=== PATIENT | female | born 1995 | race African-American/Black ===

== ENCOUNTER 2024-12-21 09:58 | Emergency (ER) | payer BC ==
[2024-12-21 10:34] LABS: APPEARANCE,URINE SLT CLOUDY; BILIRUBIN,URINE NEGATIVE (NEGATIVE); COLOR,URINE YELLOW; GLUCOSE,URINE NEGATIVE (NEGATIVE); KETONES,URINE TRACE mg/dL (NEGATIVE); LEUKOCYTE ESTERASE,URINE NEGATIVE (NEGATIVE); NITRITE,URINE NEGATIVE (NEGATIVE); OCCULT BLOOD,URINE NEGATIVE (NEGATIVE); PROTEIN,URINE NEGATIVE (NEGATIVE); UROBILINOGEN,URINE 0.2 EU/dL (<2.0)
[2024-12-21 10:43] LABS: BASOPHILS ABSOLUTE AUTO 0.02 K/uL (0.00-0.20); BASOPHILS PERCENT AUTO 0.4 % (0.0-1.0); EOSINOPHILS ABSOLUTE AUTO 0.08 K/uL (0.00-0.45); EOSINOPHILS PERCENT AUTO 1.8 % (0.0-6.0); HEMATOCRIT 37.1 % (37.0-47.0); HEMOGLOBIN 12.4 g/dL (12.0-16.0); IMMATURE GRAN ABSOLUTE AUTO 0.01 K/uL (0.00-0.05); IMMATURE GRAN PERCENT AUTO 0.2 % (0.0-0.4); LYMPHOCYTES PERCENT AUTO 48.6 % (24.0-44.0); MEAN CORPUSCULAR HEMOGLOBIN 28.1 pg (28.0-32.0); MEAN CORPUSCULAR HGB CONC 33.4 g/dL (32.0-36.0); MEAN CORPUSCULAR VOLUME 84.1 fL (83.0-99.0); MEAN PLATELET VOLUME 10.7 fL (9.4-12.3); MONOCYTES ABSOLUTE AUTO 0.52 K/uL (0.00-0.80); MONOCYTES PERCENT AUTO 11.5 % (0.0-8.0); NEUTROPHILS PERCENT AUTO 37.5 % (41.0-71.0); PLATELET COUNT,PLT 259 K/uL (150-400); RED BLOOD CELL COUNT 4.41 M/uL (4.10-5.30); WHITE BLOOD CELL COUNT,WBC 4.53 K/uL (3.9-11.3)
[2024-12-21 11:05] LABS: A/G RATIO 1.1 (0.9-1.6); ALBUMIN 4.1 g/dL (3.4-5.0); BILIRUBIN TOTAL 0.6 mg/dL (0.2-1.0); CALCIUM 9.4 mg/dL (8.5-10.1); CARBON DIOXIDE,CO2 27.3 mmol/L (21.0-32.0); CREATININE 0.8 mg/dL (0.6-1.0); EST CRCL DRUG DOSING (CG) 91.68 mL/min; POTASSIUM,K 4.1 mmol/L (3.5-5.1); PROTEIN TOTAL,TP 7.8 g/dL (6.4-8.2)
[2024-12-21 11:25] LABS: CANDIDA DNA PROBE POSITIVE (NEGATIVE); GARDNERELLA DNA PROBE POSITIVE (NEGATIVE); TRICHOMONAS DNA PROBE NEGATIVE (NEGATIVE)
[2024-12-21 12:07] LABS: C. TRACHOMATIS BY PCR NOT DETECTED; N. GONORRHOEAE BY PCR NOT DETECTED
[2024-12-21] MEDS: metroNIDAZOLE 250 MG Tab PO ONE (12:25)
[2024-12-21] MEDS: Acetaminophen 500 MG Tab PO ONE (12:25)
== END 2024-12-21 13:06 | disposition home or self-care (01) ==
LOC: MW.ED 09:58
DX: O23.591 Infection of other part of genital tract in pregnancy, first trimester (principal); B37.31 Acute candidiasis of vulva and vagina; Z3A.01 Less than 8 weeks gestation of pregnancy; Z79.899 Other long term (current) drug therapy; Z75.8 Other problems related to medical facilities and other health care
CPT/HCPCS: 36415; 76801; 80053; 81003; 81025; 83690; 84702; 85025; 87480; 87491; 87510; 87591; 87660; 99284; A9270; 99283

== ENCOUNTER 2024-12-26 01:18 | Emergency (ER) | payer SELFPAY ==
[2024-12-26] MEDS: Metoclopramide 10 MG/2 ML SDV IVPUSH ONE (02:32)
[2024-12-26] MEDS: diphenhydrAMINE 50 MG/ML SDV IVPUSH ONE (02:32)
[2024-12-26] MEDS: Dextrose 5%-0.9% NaCl 1,000 ML IV SCH (02:34)
[2024-12-26 02:39] LABS: BASOPHILS ABSOLUTE AUTO 0.02 K/uL (0.00-0.20); BASOPHILS PERCENT AUTO 0.3 % (0.0-1.0); EOSINOPHILS ABSOLUTE AUTO 0.06 K/uL (0.00-0.45); EOSINOPHILS PERCENT AUTO 0.9 % (0.0-6.0); HEMATOCRIT 37.4 % (37.0-47.0); HEMOGLOBIN 12.7 g/dL (12.0-16.0); IMMATURE GRAN ABSOLUTE AUTO 0.01 K/uL (0.00-0.05); IMMATURE GRAN PERCENT AUTO 0.1 % (0.0-0.4); LYMPHOCYTES ABSOLUTE AUTO 2.11 K/uL (1.00-4.80); LYMPHOCYTES PERCENT AUTO 31.2 % (24.0-44.0); MEAN CORPUSCULAR HEMOGLOBIN 28.2 pg (28.0-32.0); MEAN CORPUSCULAR VOLUME 83.1 fL (83.0-99.0); MEAN PLATELET VOLUME 10.7 fL (9.4-12.3); MONOCYTES ABSOLUTE AUTO 0.53 K/uL (0.00-0.80); MONOCYTES PERCENT AUTO 7.8 % (0.0-8.0); NEUTROPHILS ABSOLUTE AUTO 4.04 K/uL (1.80-7.70); NEUTROPHILS PERCENT AUTO 59.7 % (41.0-71.0); PLATELET COUNT,PLT 251 K/uL (150-400); WHITE BLOOD CELL COUNT,WBC 6.77 K/uL (3.9-11.3)
[2024-12-26 03:15] LABS: A/G RATIO 1.2 (0.9-1.6); ALANINE AMINOTRANSFERASE,ALT 15 IU/L (14-63); ALBUMIN 4.2 g/dL (3.4-5.0); ALKALINE PHOSPHATASE 64 U/L (46-116); ASPARTATE AMNIOTRANSFERASE,AST 18 IU/L (15-37); BILIRUBIN TOTAL 0.6 mg/dL (0.2-1.0); BLOOD UREA NITROGEN,BUN 11 mg/dL (7.0-18.0); CALCIUM 9.7 mg/dL (8.5-10.1); CARBON DIOXIDE,CO2 25.3 mmol/L (21.0-32.0); CHLORIDE,CL 104 mmol/L (98-107); CREATININE 0.8 mg/dL (0.6-1.0); GLUCOSE RANDOM 105 mg/dL (74-106); POTASSIUM,K 3.8 mmol/L (3.5-5.1); PROTEIN TOTAL,TP 7.6 g/dL (6.4-8.2); SODIUM,NA 140 mmol/L (136-145)
[2024-12-26 03:18] LABS: ESTIMATED GFR 101 mL/min (>60)
[2024-12-26 06:16] LABS: COLOR,URINE YELLOW; GLUCOSE,URINE NEGATIVE (NEGATIVE); KETONES,URINE 40 mg/dL (NEGATIVE); LEUKOCYTE ESTERASE,URINE NEGATIVE (NEGATIVE); NITRITE,URINE NEGATIVE (NEGATIVE); OCCULT BLOOD,URINE NEGATIVE (NEGATIVE); PROTEIN,URINE 30 mg/dL (NEGATIVE); UROBILINOGEN,URINE 0.2 EU/dL (<2.0)
[2024-12-26 06:21] LABS: APPEARANCE,URINE HAZY; BILIRUBIN,URINE SMALL (NEGATIVE)
[2024-12-26 06:28] LABS: BACTERIA,URINE FEW (NEGATIVE); MUCUS,URINE HEAVY (NONE-MOD); SQUAMOUS EPITHELIAL CELLS,UR FEW; WBC,URINE 0-2 (0-5/HPF)
== END 2024-12-26 08:12 | disposition home or self-care (01) ==
LOC: MW.ED 01:18
DX: O21.0 Mild hyperemesis gravidarum (principal); Z79.899 Other long term (current) drug therapy; Z3A.01 Less than 8 weeks gestation of pregnancy
CPT/HCPCS: 36415; 76817; 80053; 81001; 84703; 85025; 96361; 96374; 96375; 99284; J1200; J2765; J7042; 99283

== ENCOUNTER 2024-12-31 20:10 | Emergency (ER) | payer SELFPAY ==
[2024-12-31] MEDS: Ondansetron 4 MG/2 ML SDV IVPUSH ONE (20:45)
[2024-12-31] MEDS: Sodium Chloride 0.9% 1,000 ML IV ONE (20:45)
[2024-12-31 21:07] LABS: BASOPHILS ABSOLUTE AUTO 0.03 K/uL (0.00-0.20); BASOPHILS PERCENT AUTO 0.4 % (0.0-1.0); EOSINOPHILS ABSOLUTE AUTO 0.07 K/uL (0.00-0.45); EOSINOPHILS PERCENT AUTO 0.9 % (0.0-6.0); HEMATOCRIT 39.1 % (37.0-47.0); HEMOGLOBIN 13.2 g/dL (12.0-16.0); IMMATURE GRAN ABSOLUTE AUTO 0.02 K/uL (0.00-0.05); IMMATURE GRAN PERCENT AUTO 0.3 % (0.0-0.4); LYMPHOCYTES ABSOLUTE AUTO 2.39 K/uL (1.00-4.80); LYMPHOCYTES PERCENT AUTO 30.9 % (24.0-44.0); MEAN CORPUSCULAR HEMOGLOBIN 28.4 pg (28.0-32.0); MEAN CORPUSCULAR HGB CONC 33.8 g/dL (32.0-36.0); MEAN CORPUSCULAR VOLUME 84.1 fL (83.0-99.0); MEAN PLATELET VOLUME 10.7 fL (9.4-12.3); MONOCYTES ABSOLUTE AUTO 0.72 K/uL (0.00-0.80); MONOCYTES PERCENT AUTO 9.3 % (0.0-8.0); NEUTROPHILS PERCENT AUTO 58.2 % (41.0-71.0); PLATELET COUNT,PLT 242 K/uL (150-400); RED BLOOD CELL COUNT 4.65 M/uL (4.10-5.30); WHITE BLOOD CELL COUNT,WBC 7.73 K/uL (3.9-11.3)
[2024-12-31 21:09] LABS: APPEARANCE,URINE CLEAR; BILIRUBIN,URINE NEGATIVE (NEGATIVE); COLOR,URINE YELLOW; GLUCOSE,URINE NEGATIVE (NEGATIVE); KETONES,URINE 15 mg/dL (NEGATIVE); LEUKOCYTE ESTERASE,URINE NEGATIVE (NEGATIVE); NITRITE,URINE NEGATIVE (NEGATIVE); OCCULT BLOOD,URINE NEGATIVE (NEGATIVE); PH,URINE 6.5 (5.0-8.0); PROTEIN,URINE 30 mg/dL (NEGATIVE); UROBILINOGEN,URINE 0.2 EU/dL (<2.0)
[2024-12-31 21:38] LABS: A/G RATIO 1.2 (0.9-1.6); ALANINE AMINOTRANSFERASE,ALT 27 IU/L (14-63); ALBUMIN 4.4 g/dL (3.4-5.0); ALKALINE PHOSPHATASE 65 U/L (46-116); ASPARTATE AMNIOTRANSFERASE,AST 33 IU/L (15-37); BILIRUBIN TOTAL 0.5 mg/dL (0.2-1.0); BLOOD UREA NITROGEN,BUN 11 mg/dL (7.0-18.0); CALCIUM 9.5 mg/dL (8.5-10.1); CARBON DIOXIDE,CO2 21.4 mmol/L (21.0-32.0); CHLORIDE,CL 101 mmol/L (98-107); CREATININE 0.7 mg/dL (0.6-1.0); GLUCOSE RANDOM 90 mg/dL (74-106); POTASSIUM,K 3.6 mmol/L (3.5-5.1); SODIUM,NA 137 mmol/L (136-145)
[2024-12-31 21:42] LABS: ESTIMATED GFR 119 mL/min (>60)
[2024-12-31 21:45] LABS: BACTERIA,URINE FEW (NEGATIVE); MUCUS,URINE MODERATE (NONE-MOD); RBC,URINE 0-2 (0-2/HPF); SQUAMOUS EPITHELIAL CELLS,UR MODERATE
== END 2024-12-31 22:12 | disposition home or self-care (01) ==
LOC: MW.ED 20:10
DX: R11.2 Nausea with vomiting, unspecified (principal); Z75.3 Unavailability and inaccessibility of health-care facilities; Z79.899 Other long term (current) drug therapy
CPT/HCPCS: 36415; 80053; 81001; 85025; 87428; 96361; 96374; 99284; J2405; J7030

== ENCOUNTER 2025-01-03 15:06 | Emergency (ER) | payer SELFPAY ==
[2025-01-03] MEDS ORDERED: Sodium Chloride 0.9% 2.5 ML Syringe FLUSH PRN (15:14)
[2025-01-03] MEDS ORDERED: Sodium Chloride 0.9% 10 ML Syringe FLUSH PRN (15:14)
[2025-01-03] MEDS: Metoclopramide 10 MG/2 ML SDV IVPUSH STA (15:32)
[2025-01-03] MEDS: Sodium Chloride 0.9% 1,000 ML IV STA ×2 (15:32→16:36)
[2025-01-03] MEDS: diphenhydrAMINE 50 MG/ML SDV IVPUSH STA (15:33)
[2025-01-03 15:47] LABS: BASOPHILS ABSOLUTE AUTO 0.01 K/uL (0.00-0.20); BASOPHILS PERCENT AUTO 0.2 % (0.0-1.0); EOSINOPHILS ABSOLUTE AUTO 0.04 K/uL (0.00-0.45); EOSINOPHILS PERCENT AUTO 0.6 % (0.0-6.0); HEMATOCRIT 38.5 % (37.0-47.0); HEMOGLOBIN 13.3 g/dL (12.0-16.0); IMMATURE GRAN ABSOLUTE AUTO 0.01 K/uL (0.00-0.05); IMMATURE GRAN PERCENT AUTO 0.2 % (0.0-0.4); LYMPHOCYTES ABSOLUTE AUTO 2.19 K/uL (1.00-4.80); LYMPHOCYTES PERCENT AUTO 35.5 % (24.0-44.0); MEAN CORPUSCULAR HEMOGLOBIN 28.2 pg (28.0-32.0); MEAN CORPUSCULAR HGB CONC 34.5 g/dL (32.0-36.0); MEAN CORPUSCULAR VOLUME 81.7 fL (83.0-99.0); MEAN PLATELET VOLUME 10.8 fL (9.4-12.3); MONOCYTES ABSOLUTE AUTO 0.63 K/uL (0.00-0.80); MONOCYTES PERCENT AUTO 10.2 % (0.0-8.0); NEUTROPHILS ABSOLUTE AUTO 3.29 K/uL (1.80-7.70); NEUTROPHILS PERCENT AUTO 53.3 % (41.0-71.0); PLATELET COUNT,PLT 266 K/uL (150-400); RED BLOOD CELL COUNT 4.71 M/uL (4.10-5.30); WHITE BLOOD CELL COUNT,WBC 6.17 K/uL (3.9-11.3)
[2025-01-03 16:14] LABS: A/G RATIO 1.2 (0.9-1.6); ALBUMIN 4.3 g/dL (3.4-5.0); BILIRUBIN TOTAL 0.8 mg/dL (0.2-1.0); CALCIUM 9.3 mg/dL (8.5-10.1); CARBON DIOXIDE,CO2 25.6 mmol/L (21.0-32.0); CREATININE 0.7 mg/dL (0.6-1.0); EST CRCL DRUG DOSING (CG) 109.01 mL/min; PROTEIN TOTAL,TP 7.8 g/dL (6.4-8.2)
[2025-01-03] MEDS: Potassium Chloride 20 MEQ Tab.ER PO STA (16:46)
[2025-01-03 17:33] LABS: APPEARANCE,URINE CLOUDY; BILIRUBIN,URINE NEGATIVE (NEGATIVE); COLOR,URINE YELLOW; GLUCOSE,URINE NEGATIVE (NEGATIVE); KETONES,URINE >=80 mg/dL (NEGATIVE); LEUKOCYTE ESTERASE,URINE TRACE (NEGATIVE); NITRITE,URINE NEGATIVE (NEGATIVE); OCCULT BLOOD,URINE NEGATIVE (NEGATIVE); PH,URINE 6.5 (5.0-8.0); PROTEIN,URINE 30 mg/dL (NEGATIVE)
[2025-01-03 18:05] LABS: BACTERIA,URINE 1+ (NEGATIVE); EPITHELIAL CELLS,URINE MODERATE (NONE-FEW); MUCUS,URINE MODERATE (NONE-MOD); RBC,URINE 0-1 (0-2/HPF)
[2025-01-03] MEDS: Cephalexin 500 MG Cap PO STA (18:29)
== END 2025-01-03 18:34 | disposition home or self-care (01) ==
LOC: MW.ED 15:06
DX: O21.9 Vomiting of pregnancy, unspecified (principal); O99.281 Endocrine, nutritional and metabolic diseases complicating pregnancy, first trimester; O23.91 Unspecified genitourinary tract infection in pregnancy, first trimester; E87.6 Hypokalemia; R78.81 Bacteremia; Z3A.01 Less than 8 weeks gestation of pregnancy; Z75.8 Other problems related to medical facilities and other health care
CPT/HCPCS: 36415; 80053; 81001; 83690; 85025; 87086; 96361; 96374; 96375; 99284; A9270; J1200; J2765; J7030

== ENCOUNTER 2025-01-06 14:57 | Emergency (ER) | payer SELFPAY ==
[2025-01-06] MEDS: Ondansetron 4 MG/2 ML SDV IVPUSH ONE (15:51)
[2025-01-06] MEDS: Sodium Chloride 0.9% 1,000 ML IV ONE (15:51)
[2025-01-06 16:00] LABS: BASOPHILS ABSOLUTE AUTO 0.03 K/uL (0.00-0.20); BASOPHILS PERCENT AUTO 0.5 % (0.0-1.0); EOSINOPHILS ABSOLUTE AUTO 0.09 K/uL (0.00-0.45); EOSINOPHILS PERCENT AUTO 1.5 % (0.0-6.0); HEMATOCRIT 39.5 % (37.0-47.0); HEMOGLOBIN 13.6 g/dL (12.0-16.0); IMMATURE GRAN ABSOLUTE AUTO 0.02 K/uL (0.00-0.05); IMMATURE GRAN PERCENT AUTO 0.3 % (0.0-0.4); LYMPHOCYTES ABSOLUTE AUTO 2.18 K/uL (1.00-4.80); LYMPHOCYTES PERCENT AUTO 36.6 % (24.0-44.0); MEAN CORPUSCULAR HEMOGLOBIN 28.2 pg (28.0-32.0); MEAN CORPUSCULAR HGB CONC 34.4 g/dL (32.0-36.0); MEAN CORPUSCULAR VOLUME 81.8 fL (83.0-99.0); MEAN PLATELET VOLUME 10.6 fL (9.4-12.3); MONOCYTES ABSOLUTE AUTO 0.56 K/uL (0.00-0.80); MONOCYTES PERCENT AUTO 9.4 % (0.0-8.0); NEUTROPHILS ABSOLUTE AUTO 3.08 K/uL (1.80-7.70); NEUTROPHILS PERCENT AUTO 51.7 % (41.0-71.0); PLATELET COUNT,PLT 272 K/uL (150-400); RED BLOOD CELL COUNT 4.83 M/uL (4.10-5.30); WHITE BLOOD CELL COUNT,WBC 5.96 K/uL (3.9-11.3)
[2025-01-06 16:20] LABS: A/G RATIO 1.2 (0.9-1.6); ALBUMIN 4.4 g/dL (3.4-5.0); BILIRUBIN TOTAL 0.7 mg/dL (0.2-1.0); CALCIUM 9.6 mg/dL (8.5-10.1); CARBON DIOXIDE,CO2 27.5 mmol/L (21.0-32.0); CREATININE 0.7 mg/dL (0.6-1.0); EST CRCL DRUG DOSING (CG) 104.78 mL/min; POTASSIUM,K 4.1 mmol/L (3.5-5.1); PROTEIN TOTAL,TP 8.1 g/dL (6.4-8.2)
== END 2025-01-06 17:48 | disposition home or self-care (01) ==
LOC: MW.ED 14:57
DX: O21.0 Mild hyperemesis gravidarum (principal); Z75.3 Unavailability and inaccessibility of health-care facilities; Z3A.00 Weeks of gestation of pregnancy not specified
CPT/HCPCS: 36415; 80053; 83735; 85025; 96361; 96374; 99284; J2405; J7030; 99283

== ENCOUNTER 2025-01-12 11:59 | Emergency (ER) | payer SELFPAY ==
[2025-01-12] MEDS ORDERED: Sodium Chloride 0.9% 2.5 ML Syringe FLUSH PRN (12:24)
[2025-01-12] MEDS ORDERED: Sodium Chloride 0.9% 10 ML Syringe FLUSH PRN (12:24)
[2025-01-12] MEDS: Sodium Chloride 0.9% 1,000 ML IV ONE (13:53)
[2025-01-12] MEDS: Ondansetron 4 MG/2 ML SDV IVPUSH ONE (13:53)
[2025-01-12 13:56] LABS: BASOPHILS ABSOLUTE AUTO 0.01 K/uL (0.00-0.20); BASOPHILS PERCENT AUTO 0.2 % (0.0-1.0); EOSINOPHILS ABSOLUTE AUTO 0.07 K/uL (0.00-0.45); EOSINOPHILS PERCENT AUTO 1.3 % (0.0-6.0); HEMATOCRIT 39.3 % (37.0-47.0); HEMOGLOBIN 13.2 g/dL (12.0-16.0); IMMATURE GRAN ABSOLUTE AUTO 0.01 K/uL (0.00-0.05); IMMATURE GRAN PERCENT AUTO 0.2 % (0.0-0.4); LYMPHOCYTES ABSOLUTE AUTO 1.98 K/uL (1.00-4.80); MEAN CORPUSCULAR HEMOGLOBIN 27.8 pg (28.0-32.0); MEAN CORPUSCULAR HGB CONC 33.6 g/dL (32.0-36.0); MEAN CORPUSCULAR VOLUME 82.9 fL (83.0-99.0); MEAN PLATELET VOLUME 10.9 fL (9.4-12.3); MONOCYTES ABSOLUTE AUTO 0.44 K/uL (0.00-0.80); MONOCYTES PERCENT AUTO 8.2 % (0.0-8.0); NEUTROPHILS ABSOLUTE AUTO 2.84 K/uL (1.80-7.70); NEUTROPHILS PERCENT AUTO 53.1 % (41.0-71.0); PLATELET COUNT,PLT 253 K/uL (150-400); RED BLOOD CELL COUNT 4.74 M/uL (4.10-5.30); WHITE BLOOD CELL COUNT,WBC 5.35 K/uL (3.9-11.3)
[2025-01-12 14:20] LABS: A/G RATIO 1.2 (0.9-1.6); ALBUMIN 4.1 g/dL (3.4-5.0); BILIRUBIN TOTAL 0.7 mg/dL (0.2-1.0); CALCIUM 9.5 mg/dL (8.5-10.1); CARBON DIOXIDE,CO2 27.5 mmol/L (21.0-32.0); CREATININE 0.7 mg/dL (0.6-1.0); EST CRCL DRUG DOSING (CG) 109.01 mL/min; POTASSIUM,K 3.3 mmol/L (3.5-5.1); PROTEIN TOTAL,TP 7.6 g/dL (6.4-8.2)
== END 2025-01-12 15:50 | disposition home or self-care (01) ==
LOC: MW.ED 11:59
DX: O21.0 Mild hyperemesis gravidarum (principal); Z79.899 Other long term (current) drug therapy; Z3A.00 Weeks of gestation of pregnancy not specified
CPT/HCPCS: 36415; 80053; 83735; 85025; 96361; 96374; 99284; J2405; J7030; 99283

== ENCOUNTER 2025-08-01 07:56 | Inpatient (IN) | payer MEDICAID ==
[2025-08-01 08:42] LABS: APPEARANCE,URINE SLT CLOUDY; GLUCOSE,URINE 100 mg/dL (NEGATIVE); OCCULT BLOOD,URINE LARGE (NEGATIVE)
[2025-08-01 08:49] LABS: EPITHELIAL CELLS,URINE MODERATE (NONE-FEW)
[2025-08-01] MEDS ORDERED: Ondansetron 4 MG/2 ML SDV IVPUSH PRN ×4 (08:58→12:40)
[2025-08-01] MEDS ORDERED: Sodium Chloride 0.9% 2.5 ML Syringe FLUSH PRN (08:58)
[2025-08-01] MEDS ORDERED: Sodium Chloride 0.9% 10 ML Syringe FLUSH PRN ×2 (08:58→12:40)
[2025-08-01] MEDS ORDERED: Lactated Ringers 1,000 ML IV SCH (09:00)
[2025-08-01] MEDS ORDERED: Oxytocin/0.9 % Sodium Chloride 30 UNIT/500 ML BAG IV SCH ×2 (09:00→12:45)
[2025-08-01 09:34] LABS: MEAN PLATELET VOLUME 10.4 fL (9.4-12.3); NRBC ABSOLUTE 0.00 K/uL (0.00-0.02); NRBC PERCENT 0.0 /100WBC (0.0-0.2); PLATELET COUNT,PLT 301 K/uL (150-400); RED BLOOD CELL COUNT 3.86 M/uL (4.10-5.30); WHITE BLOOD CELL COUNT,WBC 8.06 K/uL (3.9-11.3)
[2025-08-01] MEDS ORDERED: Morphine PF 10 MG/10 ML SDV ONE (10:46)
[2025-08-01] MEDS ORDERED: Ondansetron 4 MG/2 ML SDV ONE (10:46)
[2025-08-01] MEDS ORDERED: Dexamethasone Sod Phos Preservative Free 10 MG/ML Vial ONE (10:46)
[2025-08-01] MEDS ORDERED: Ketorolac 30 MG/ML SDV ONE (10:46)
[2025-08-01] MEDS ORDERED: fentaNYL 100 MCG/2 ML SDV ONE (10:46)
[2025-08-01] MEDS ORDERED: Oxytocin 10 Units/1 ML SDV ONE ×2 (10:46→11:44)
[2025-08-01] MEDS ORDERED: Ropivacaine 0.5% 5 MG/ML 30 ML SDV ONE (10:46)
[2025-08-01] MEDS ORDERED: fentaNYL 50 MCG/ML SDV IVPUSH PRN (12:39)
[2025-08-01] MEDS ORDERED: fentaNYL 100 MCG/2 ML SDV IVPUSH PRN (12:39)
[2025-08-01] MEDS ORDERED: Naloxone 0.4 MG/ML SDV IVPUSH PRN (12:39)
[2025-08-01] MEDS ORDERED: diphenhydrAMINE 50 MG/ML SDV IVPUSH PRN (12:39)
[2025-08-01] MEDS ORDERED: Nalbuphine 10 MG/1 ML Vial IVPUSH PRN (12:39)
[2025-08-01] MEDS ORDERED: Albuterol 0.083% 2.5 MG/3 ML Neb Soln NEB PRN (12:39)
[2025-08-01] MEDS ORDERED: Naloxone 0.4 MG/ML SDV IVPUSH ONE (12:40)
[2025-08-01] MEDS ORDERED: Lanolin 100% Cream 7 GM Tube TOP PRN (12:40)
[2025-08-01] MEDS ORDERED: Carboprost Tromethamine 250 MCG/1 mL Vial IM PRN (12:40)
[2025-08-01 12:41] LABS: PH,UMBILICAL ARTERIAL 7.23 (7.18-7.38); PH,UMBILICAL VENOUS 7.29 (7.25-7.45)
[2025-08-01] MEDS: Ketorolac 30 MG/ML SDV IVPUSH SCH (17:09)
[2025-08-02 06:08] LABS: BASOPHILS ABSOLUTE AUTO 0.02 K/uL (0.00-0.20); BASOPHILS PERCENT AUTO 0.1 % (0.0-1.0); EOSINOPHILS ABSOLUTE AUTO 0.00 K/uL (0.00-0.45); EOSINOPHILS PERCENT AUTO 0.0 % (0.0-6.0); IMMATURE GRAN ABSOLUTE AUTO 0.09 K/uL (0.00-0.05); IMMATURE GRAN PERCENT AUTO 0.6 % (0.0-0.4); LYMPHOCYTES ABSOLUTE AUTO 1.46 K/uL (1.00-4.80); LYMPHOCYTES PERCENT AUTO 9.1 % (24.0-44.0); MEAN PLATELET VOLUME 10.4 fL (9.4-12.3); MONOCYTES ABSOLUTE AUTO 1.11 K/uL (0.00-0.80); MONOCYTES PERCENT AUTO 6.9 % (0.0-8.0); NEUTROPHILS ABSOLUTE AUTO 13.35 K/uL (1.80-7.70); NEUTROPHILS PERCENT AUTO 83.3 % (41.0-71.0); NRBC ABSOLUTE 0.00 K/uL (0.00-0.02); NRBC PERCENT 0.0 /100WBC (0.0-0.2); PLATELET COUNT,PLT 263 K/uL (150-400); RED BLOOD CELL COUNT 3.55 M/uL (4.10-5.30); WHITE BLOOD CELL COUNT,WBC 16.03 K/uL (3.9-11.3)
[2025-08-02] MEDS: Acetaminophen/oxyCODONE 325-5 MG Tab PO PRN (17:04)
== END 2025-08-03 13:50 | disposition home or self-care (01) | DRG 786 ==
LOC: MW.OBCHECK 07:56 → MW.OB 07:57 → MW.OBCHECK 11:53 → MW.OB 11:54
PROVIDERS: ADMIT Obstetrics & Gynecology; ATTEND Obstetrics & Gynecology
PROC: 10D00Z1 Extraction of Products of Conception, Low, Open Approach (ICD-10-PCS; principal; 2025-08-01 10:45)
DX: O42.02 Full-term premature rupture of membranes, onset of labor within 24 hours of rupture (principal); O45.93 Premature separation of placenta, unspecified, third trimester; O34.211 Maternal care for low transverse scar from previous cesarean delivery; O99.02 Anemia complicating childbirth; Z3A.38 38 weeks gestation of pregnancy; Z37.0 Single live birth; Z88.8 Allergy status to other drugs, medicaments and biological substances; Z90.49 Acquired absence of other specified parts of digestive tract; Z79.899 Other long term (current) drug therapy
CPT/HCPCS: 01961; 36415; 59025; 59514; 64488; 76805; 76805-26; 81001; 82803; 82947; 84112; 85025; 85027; 86592; 86850; 86900; 86901; 86920; 87086; A9270-GY; J0166; J0456; J0665; J0690; J1100; J1885; J2274; J2371; J2405; J2590; J2795; J3010